=== PATIENT | male | born 1955 | race Caucasian/White ===

== ENCOUNTER → 2019-04-08 09:03 | Outpatient (BNVA) | payer MEDICAID, SELFPAY | PROVIDERS: Family Provider Family Medicine; PCP Family Medicine; Visit Provider Nurse Practitioner | DX: M54.5 Low back pain (principal); M54.2 Cervicalgia; F17.220 Nicotine dependence, chewing tobacco, uncomplicated; Z79.891 Long term (current) use of opiate analgesic | CPT/HCPCS: 99213; 99214 ==

== ENCOUNTER → 2019-06-02 09:45 | Outpatient (BNVA) | payer MEDICAID, SELFPAY | PROVIDERS: Family Provider Family Medicine; PCP Family Medicine; Visit Provider Anesthesiology | DX: Z76.89 Persons encountering health services in other specified circumstances (principal) | CPT/HCPCS: 99213 ==

== ENCOUNTER → 2019-08-24 10:08 | Outpatient (BNVA) | payer MEDICAID, SELFPAY | PROVIDERS: Family Provider Family Medicine; PCP Family Medicine; Visit Provider Anesthesiology | DX: G89.29 Other chronic pain (principal); M54.2 Cervicalgia; M75.51 Bursitis of right shoulder; M54.5 Low back pain; F17.220 Nicotine dependence, chewing tobacco, uncomplicated; Z79.891 Long term (current) use of opiate analgesic; Z71.6 Tobacco abuse counseling | CPT/HCPCS: 99214 ==

== ENCOUNTER → 2019-10-26 10:13 | Outpatient (BNVA) | payer MEDICAID, SELFPAY | PROVIDERS: Family Provider Family Medicine; PCP Family Medicine; Visit Provider Anesthesiology | DX: G89.29 Other chronic pain (principal); M54.2 Cervicalgia; M75.51 Bursitis of right shoulder; M54.5 Low back pain; F17.220 Nicotine dependence, chewing tobacco, uncomplicated; Z79.891 Long term (current) use of opiate analgesic; Z71.6 Tobacco abuse counseling | CPT/HCPCS: 99214 ==

== ENCOUNTER → 2019-11-30 08:50 | Outpatient (BNVA) | payer MEDICAID, SELFPAY | PROVIDERS: Family Provider Family Medicine; PCP Family Medicine; Visit Provider Anesthesiology | DX: G89.29 Other chronic pain (principal); M54.2 Cervicalgia; M54.5 Low back pain; F17.220 Nicotine dependence, chewing tobacco, uncomplicated; Z79.891 Long term (current) use of opiate analgesic | CPT/HCPCS: 99213; 99214 ==

== ENCOUNTER → 2020-01-28 08:45 | Outpatient (BNVA) | payer MEDICAID, SELFPAY | PROVIDERS: Family Provider Family Medicine; PCP Family Medicine; Visit Provider Anesthesiology | DX: G89.29 Other chronic pain (principal); M54.2 Cervicalgia; M54.5 Low back pain; F17.220 Nicotine dependence, chewing tobacco, uncomplicated; Z79.891 Long term (current) use of opiate analgesic | CPT/HCPCS: 99213; 99214 ==

== ENCOUNTER → 2020-03-31 07:55 | Outpatient (BNVA) | payer MEDICAID, SELFPAY | PROVIDERS: Family Provider Family Medicine; PCP Family Medicine; Visit Provider Anesthesiology | DX: G89.29 Other chronic pain (principal); M54.2 Cervicalgia; M75.51 Bursitis of right shoulder; M54.5 Low back pain; F17.220 Nicotine dependence, chewing tobacco, uncomplicated; Z79.891 Long term (current) use of opiate analgesic | CPT/HCPCS: 99214 ==

== ENCOUNTER → 2020-05-26 08:41 | Outpatient (BNVA) | payer MEDICAID, SELFPAY | PROVIDERS: Family Provider Family Medicine; PCP Family Medicine; Visit Provider Anesthesiology | DX: G89.29 Other chronic pain (principal); M54.5 Low back pain; M54.2 Cervicalgia; M25.512 Pain in left shoulder; F17.220 Nicotine dependence, chewing tobacco, uncomplicated; Z79.891 Long term (current) use of opiate analgesic | CPT/HCPCS: 99214 ==

== ENCOUNTER → 2020-07-26 07:50 | Outpatient (BNVA) | payer MEDICAID, SELFPAY | PROVIDERS: Family Provider Family Medicine; PCP Family Medicine; Visit Provider Anesthesiology | DX: G89.29 Other chronic pain (principal); M54.5 Low back pain; M54.2 Cervicalgia; M75.52 Bursitis of left shoulder; F17.220 Nicotine dependence, chewing tobacco, uncomplicated; Z79.891 Long term (current) use of opiate analgesic | CPT/HCPCS: 99214 ==

== ENCOUNTER → 2020-10-05 08:02 | Outpatient (BNVA) | payer MEDICAID, SELFPAY | PROVIDERS: Family Provider Family Medicine; PCP Family Medicine; Visit Provider Nurse Practitioner | DX: G89.29 Other chronic pain (principal); M54.2 Cervicalgia; M75.52 Bursitis of left shoulder; M75.51 Bursitis of right shoulder; M54.5 Low back pain; F17.220 Nicotine dependence, chewing tobacco, uncomplicated; Z79.891 Long term (current) use of opiate analgesic | CPT/HCPCS: 99214 ==

== ENCOUNTER → 2020-11-01 08:56 | Outpatient (BNVA) | payer MEDICAID, SELFPAY | PROVIDERS: Family Provider Family Medicine; PCP Family Medicine; Visit Provider Anesthesiology | DX: G89.29 Other chronic pain (principal); M54.5 Low back pain; M54.2 Cervicalgia; F17.220 Nicotine dependence, chewing tobacco, uncomplicated; Z79.891 Long term (current) use of opiate analgesic | CPT/HCPCS: 99214 ==

== ENCOUNTER → 2020-12-27 08:43 | Outpatient (BNVA) | payer MEDICAID, SELFPAY | PROVIDERS: Family Provider Family Medicine; PCP Family Medicine; Visit Provider Anesthesiology | DX: G89.29 Other chronic pain (principal); M54.2 Cervicalgia; M54.50 Low back pain, unspecified; F17.200 Nicotine dependence, unspecified, uncomplicated; Z79.891 Long term (current) use of opiate analgesic | CPT/HCPCS: 99214 ==

== ENCOUNTER → 2021-03-01 08:39 | Outpatient (BNVA) | payer MEDICAID, SELFPAY | PROVIDERS: Family Provider Family Medicine; PCP Family Medicine; Visit Provider Anesthesiology | DX: G89.29 Other chronic pain (principal); M54.2 Cervicalgia; M75.52 Bursitis of left shoulder; M54.50 Low back pain, unspecified; F17.220 Nicotine dependence, chewing tobacco, uncomplicated; Z79.891 Long term (current) use of opiate analgesic | CPT/HCPCS: 99214 ==

== ENCOUNTER 2022-07-04 13:47 | Outpatient (CLI) | payer MEDICARE, MEDICAID, SELFPAY ==
--- NOTE | 2022-07-04 14:02 | CT_ITS ---
WS: [id number] CT NECK TECHNIQUE: Contrast-enhanced CT of the neck with coronal and sagittal reformatted images. CLINICAL INFORMATION: LOCALIZED SWELLING,MASS, LUMP, NECK COMPARISON: None. DLP: 190.[address] scans at [facility] use at least one of these dose optimization techniques: automated e xposure control; mA and/or kV adjustment per patient size (includes targeted exams where dose is matc hed to clinical indication); or iterative reconstruction. FINDINGS: Palpable marker posterior to the left ear. Normal underlying parotid gland. No evidence of abnormal m ass or lesion in this location. A few incidental intraparotid lymph nodes. Normal RIGHT parotid gland . Normal submandibular glands. Mastoid air cells well aerated. Mild mucosal thickening in the ethmoid a ir cells and sphenoid sinus. Normal posterior nasopharynx and parapharyngeal fat. No evidence of supr aglottic or glottic mass. Normal subglottic airway. Prior tracheostomy. No cervical lymphadenopathy. Prior postoperative changes ACDF C7-T1. Chronic appearing anterior wedging in the mid thoracic spine partially visualized. Chronic emphysematous changes in the lung apices. 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 Abnormal suspicious RI GHT infrahilar mass measuring 2.2 x 1.7 CM. Recommend further evaluation with contrast-enhanced chest CT. Peripheral enhancing RIGHT lower pole thyroid nodule measuring 11 mm. This can be followed up with [place] [facility]. CT/CT neck w con* [id number] IMPRESSION: 1. Suspicious partially evaluated spiculated RIGHT infrahilar mass RIGHT middl e lobe medially measuring 2.2 x 1.7 cm suspicious for neoplasm. RECOMMEND FURTH ER EVALUATION WITH CONTRAST-ENHANCED CHEST CT. 2. No abnormal mass or lesion in the area of palpable concern posterior to the left ear. Normal underlying parotid gland. 3. Normal submandibular glands. 4. No evidence of supraglottic or glottic mass. Evidence of prior tracheostomy . 5. Prior postoperative changes cervical fusion. 6. Peripheral enhancing RIGHT lower pole thyroid nodule measuring 11 mm.
[2022-07-04 15:06] LABS: Blood Urea Nitrogen 8 mg/dL (8-23); Glomerular Filtration Rate 50.9 mL/min (90-130)
== END 2022-07-04 13:48 | disposition home or self-care (01) ==
LOC: RAD 13:50
PROVIDERS: Family Provider Family Medicine; PCP Family Medicine; Visit Provider Specialist
DX: R22.1 Localized swelling, mass and lump, neck (principal)
CPT/HCPCS: 70491; 82565; 84520; Q9967

== ENCOUNTER 2023-03-04 10:03 | Outpatient (CLI) | payer MEDICARE, MEDICAID, SELFPAY ==
--- NOTE | 2023-03-04 10:11 | CT_ITS ---
WS: [id number] CT NECK TECHNIQUE: Contrast-enhanced CT of the neck with coronal and sagittal reformatted images. CLINICAL INFORMATION: NONTOXIC SINGLE THYROID NODULE COMPARISON: CT 07/04/2022 DLP: 118.[address] scans at [facility] use at least one of these dose optimization techniques: automated e xposure control; mA and/or kV adjustment per patient size (includes targeted exams where dose is matc hed to clinical indication); or iterative reconstruction. FINDINGS: Normal parotid glands. Normal submandibular glands. Mastoid air cells well aerated. Paranasal sinuses and mastoid air cells are well aerated. Normal posterior nasopharynx. Normal parapharyngeal fat. No evidence of supraglottic or glottic mass. Normal subglottic airway. Prior tracheostomy. Emphysematous changes in the lung apices. Small noncalcified nodule in the RIGHT lung apex posteriorly measuring 3 mm. 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 Postoperative changes LEFT clavicle. Postoperative changes ACDF C6- T1. Thoracic kyphosis. No cervical lymphadenopathy. Stable RIGHT inferior pole thyroid nodule measuring 10 mm. IMPRESSION: 1. Previously described RIGHT lower pole 10 mm thyroid nodule appears unchanged. 2. Prior tracheostomy. 3. No evidence of supraglottic or glottic mass. 4. Normal salivary glands. 5. Paranasal sinuses and mastoid air cells appear well aerated. 6. Prior postoperative changes ACDF C6-T1. 7. No cervical lymphadenopathy.
[2023-03-04 11:46] LABS: Blood Urea Nitrogen 18 mg/dL (8-23)
[2023-03-04] MEDS: iohexol 350 mg/mL 500 mL Btl (per mL) IV (12:01)
== END 2023-03-04 10:04 | disposition home or self-care (01) ==
PROVIDERS: PCP Family Medicine; Visit Provider Specialist
DX: E04.1 Nontoxic single thyroid nodule (principal); J84.10 Pulmonary fibrosis, unspecified; R91.1 Solitary pulmonary nodule
CPT/HCPCS: 70491; 82565; 84520; Q9967